=== PATIENT | male | born 1955 | race Caucasian/White ===

== ENCOUNTER 2020-08-30 09:04 | Outpatient (CLI) | payer OTHER ==
[2020-08-30 21:52] LABS: SARS-CoV-2 PCR by NAA Not Detected (NotDetected)
== END 2020-08-30 09:05 | disposition home or self-care (01) ==
LOC: LABBT 09:04
PROVIDERS: ATTEND Surgery
DX: Z01.818 Encounter for other preprocedural examination (principal); K42.9 Umbilical hernia without obstruction or gangrene; Z20.822 Contact with and (suspected) exposure to COVID-19
CPT/HCPCS: 87635; 93005; 93010; U0003; U0005

== ENCOUNTER 2020-09-04 05:42 | Day surgery (SDC) | payer OTHER ==
[2020-09-03 10:31] VITALS: BMI 33.6
[2020-09-04] MEDS ORDERED: Fentanyl 100 MCG/2 ML VIAL ONE (05:58)
[2020-09-04] MEDS ORDERED: HYDROmorphone 0.5 MG/0.5 ML SYRINGE ONE (05:58)
[2020-09-04] MEDS ORDERED: Midazolam HCl 2 mg/2 ml Vial ONE (05:58)
[2020-09-04] MEDS ORDERED: Lidocaine 2% Jelly 5 ML TUBE ONE (05:59)
[2020-09-04] MEDS ORDERED: Lidocaine 1% w/Epinephrine 1:100K 20 ML VIAL ONE (06:40)
[2020-09-04] MEDS ORDERED: Bupivacaine PF 0.5% 30 ML VIAL ONE (06:40)
[2020-09-04] MEDS ORDERED: Levofloxacin 500 mg/D5W 100 ml Premix Bag ONE (07:23)
[2020-09-04] MEDS ORDERED: PROPOFOL 200 MG/20 ML VIAL ONE (09:21)
[2020-09-04] MEDS ORDERED: Ondansetron PF 4 MG/2 ML Vial ONE (09:21)
[2020-09-04] MEDS ORDERED: Dexamethasone 20 MG/5 ML VIAL ONE (09:21)
[2020-09-04] MEDS ORDERED: Glycopyrrolate 0.2 MG/ML 5 ML SYRINGE ONE (09:21)
[2020-09-04] MEDS ORDERED: Rocuronium Bromide 10 MG/ML (10ML VIAL) ONE (09:21)
[2020-09-04] MEDS ORDERED: ePHEDrine 50 MG/ML VIAL ONE (09:21)
[2020-09-04] MEDS ORDERED: Lidocaine 1% PF 5 ML VIAL ONE (09:21)
[2020-09-04] MEDS ORDERED: HYDROcodone/Acetaminophen 5/325 mg Tablet ONE (10:18)
== END 2020-09-04 10:40 | disposition home or self-care (01) ==
LOC: SDC 05:42
PROVIDERS: ATTEND Surgery
PROC: 0WUF0JZ Supplement Abdominal Wall with Synthetic Substitute, Open Approach (ICD-10-PCS; principal; 2020-09-04)
DX: K42.9 Umbilical hernia without obstruction or gangrene (principal); M19.90 Unspecified osteoarthritis, unspecified site; M10.9 Gout, unspecified; I10 Essential (primary) hypertension; Z79.82 Long term (current) use of aspirin; Z88.0 Allergy status to penicillin
CPT/HCPCS: C1781; J0690; J1100; J1170; J1956; J2250; J2405; J2704; J3010; J3490; S0020

== ENCOUNTER 2022-02-12 15:13 | Outpatient (CLI) | payer BC | END 2022-02-12 15:14 | disposition home or self-care (01) | LOC: BICRAD 15:13 | PROVIDERS: ATTEND Anesthesiology Pain Medicine | DX: M16.12 Unilateral primary osteoarthritis, left hip (principal); M47.816 Spondylosis without myelopathy or radiculopathy, lumbar region; S73.002A Unspecified subluxation of left hip, initial encounter | CPT/HCPCS: 72110 ==

== ENCOUNTER 2022-03-03 15:39 | Outpatient (CLI) | payer BC ==
[2022-03-03 16:45] LABS: INR-International Normal Ratio 0.9; Prothrombin Time 10.3 sec (9.5-12.1)
[2022-03-03 16:48] LABS: #Basophils 0.1 10x3/uL (0.0-0.2); #Eosinphils 0.4 10x3/uL (0.0-0.5); #Neutrophils 5.8 10x3/uL (1.5-8.4); %Basophils 0.6 % (0.0-2.0); %Eosinophils 4.3 % (0.0-6.0); %Lymphocytes 12.9 % (18.0-47.0); %Monocytes 11.8 % (0.0-10.0); %Neutrophils 69.9 % (40.0-75.0); Anion Gap 16 mmol/L (10-20); BUN (Urea Nitrogen) 24 mg/dL (8.4-25.7); Calc. Creatinine Clearance 0 mL/min (70-130); Calcium 9.3 mg/dL (7.8-10.44); Carbon Dioxide 26 mmol/L (23-31); Chloride 99 mmol/L (98-107); Estimated GFR 43; Glucose 118 mg/dL (80-115); Hemoglobin 13.6 g/dL (13.5-17.5); Mean Corpuscular HGB CONC 34.3 g/dL (32.0-36.0); Mean Corpuscular Hemoglobin 30.1 pg (27.0-33.0); Mean Corpuscular Volume 87.8 fl (81.2-95.1); Mean Platelet Volume 9.7 fl (7.4-10.4); Platelet Count 340 10x3/uL (150-450); Potassium 4.1 mmol/L (3.5-5.1); RBC Distribution Width 12.7 % (11.5-14.5); Red Blood Cell (RBC) Count 4.52 10x6/uL (4.32-5.72); Sodium 137 mmol/L (136-145); White Blood Cell (WBC) Count 8.2 10x3/uL (3.5-10.5)
== END 2022-03-03 15:40 | disposition home or self-care (01) ==
LOC: LABBT 15:39
PROVIDERS: ATTEND Orthopaedic Surgery
DX: Z01.818 Encounter for other preprocedural examination (principal); M16.12 Unilateral primary osteoarthritis, left hip; Z20.822 Contact with and (suspected) exposure to COVID-19
CPT/HCPCS: 80048; 85025; 85610; 87081; 87811; 93005; 93010

== ENCOUNTER 2022-03-05 05:54 | Observation (INO) | payer BC, MEDICARE ==
[2022-03-03 12:20] VITALS: BMI 31.4
[2022-03-05] MEDS ORDERED: Tranexamic Acid 1,000 MG/10 ML VIAL ONE (06:17)
[2022-03-05] MEDS ORDERED: Sodium Chloride 0.9% 100 ML ONE ×2 (06:17→07:10)
[2022-03-05] MEDS ORDERED: Vancomycin (BATCH) 1.5 GRAM/300 ML BAG ONE (06:17)
[2022-03-05] MEDS ORDERED: Midazolam HCl 2 mg/2 ml Vial ONE ×2 (06:24→06:54)
[2022-03-05] MEDS ORDERED: fentaNYL Citrate/PF 100 MCG/2 ML SYRINGE ONE (06:25)
[2022-03-05] MEDS ORDERED: Propofol 1,000 MG/100 ML VIAL IV ONE (06:48)
[2022-03-05] MEDS ORDERED: Fentanyl 100 MCG/2 ML VIAL ONE (06:54)
[2022-03-05] MEDS ORDERED: Bupivacaine PF 0.5% 30 ML VIAL ONE (07:04)
[2022-03-05] MEDS ORDERED: CEFAZOLIN 2 GM VIAL ONE (07:10)
[2022-03-05] MEDS ORDERED: Phenylephrine 10 MG/ML VIAL ONE (07:16)
[2022-03-05] MEDS ORDERED: ePHEDrine 50 MG/ML VIAL ONE (07:16)
[2022-03-05] MEDS ORDERED: Bupivacaine HCl 0.5%/Epinephrine 1:200,000/PF 30 ml Vial ONE (07:16)
[2022-03-05] MEDS ORDERED: Ketorolac Tromethamine 30 MG/ML VIAL ONE (07:16)
[2022-03-05] MEDS ORDERED: PROPOFOL 200 MG/20 ML VIAL ONE (07:16)
[2022-03-05] MEDS ORDERED: Glycopyrrolate 0.2 MG/ML 5 ML SYRINGE ONE (07:16)
[2022-03-05] MEDS ORDERED: Promethazine HCl 25 MG/ML VIAL IM PRN (07:20)
[2022-03-05] MEDS ORDERED: HYDROcodone/Acetaminophen 10/325 mg Tablet PO PRN (07:20)
[2022-03-05] MEDS ORDERED: Ondansetron PF 4 MG/2 ML Vial IVP PRN (07:20)
[2022-03-05] MEDS ORDERED: Fentanyl 100 MCG/2 ML VIAL SLOW IVP PRN ×2 (07:20)
[2022-03-05] MEDS ORDERED: Acetaminophen 325 MG TAB PO PRN (07:20)
[2022-03-05] MEDS ORDERED: Zolpidem Tartrate 5 MG TAB PO PRN (07:20)
[2022-03-05] MEDS ORDERED: diphenhydrAMINE 25 MG CAP PO PRN (07:20)
[2022-03-05] MEDS ORDERED: Aspirin 81 mg Enteric Coated Tablet PO SCH (09:00)
[2022-03-05] MEDS ORDERED: FOLIC PO SCH (09:00)
[2022-03-05] MEDS ORDERED: LYCOP PO SCH (09:00)
[2022-03-05] MEDS ORDERED: IRON PO SCH (09:00)
[2022-03-05] MEDS ORDERED: [UNRECOGNIZED DRUG - OTHER] PO SCH (09:00)
[2022-03-05] MEDS ORDERED: MULTIVIT MINS PO SCH (09:00)
[2022-03-05] MEDS ORDERED: Non-Formulary Medication 1 EACH PO PRN (09:35)
[2022-03-05] MEDS ORDERED: Ondansetron HCl/PF 4 MG/2 ML Vial IVP PRN (09:45)
[2022-03-05] MEDS ORDERED: Promethazine HCl 25 MG/ML VIAL IM/IV PRN (09:45)
[2022-03-05] MEDS: HYDROcodone/Acetaminophen 10/325 mg Tablet PO PRN ×2 (11:35→16:17)
[2022-03-05] MEDS: Sodium Chloride 0.9% 1,000 ML IV SCH ×2 (13:51→18:46)
[2022-03-05] MEDS: Lisinopril/Hydrochlorothiazide 10 mg/12.5 mg Tablet PO SCH (13:51)
[2022-03-05] MEDS: Docusate 100 MG CAP PO SCH (13:51)
[2022-03-05] MEDS: Aspirin 81 mg Enteric Coated Tablet PO SCH ×2 (13:51→20:10)
[2022-03-05] MEDS: Ketorolac Tromethamine 30 MG/ML VIAL IVP SCH ×2 (15:12→22:32)
[2022-03-05] MEDS: CEFAZOLIN 2 GM in Sodium Chloride 0.9% 100 ML IVPB SCH ×2 (15:12→22:33)
[2022-03-05] MEDS ORDERED: Gabapentin 300 MG CAP PO SCH (21:00)
[2022-03-06] MEDS: HYDROcodone/Acetaminophen 10/325 mg Tablet PO PRN ×2 (03:49→09:09)
[2022-03-06] MEDS: Sodium Chloride 0.9% 1,000 ML IV SCH (04:16)
[2022-03-06 05:35] LABS: Hemoglobin 9.9 g/dL (14.0-18.0); Mean Corpuscular HGB CONC 33.4 g/dL (32.0-36.0); Mean Corpuscular Hemoglobin 30.6 pg (27.0-31.0); Mean Corpuscular Volume 91.7 fL (78.0-98.0); Mean Platelet Volume 6.8 fL (7.4-10.4); Platelet Count 202 thou/uL (130-400); RBC Distribution Width 11.9 % (11.5-14.5); Red Blood Cell (RBC) Count 3.22 mill/uL (4.70-6.10); White Blood Cell (WBC) Count 7.7 thou/uL (4.8-10.8)
[2022-03-06] MEDS: Ketorolac Tromethamine 30 MG/ML VIAL IVP SCH (06:07)
[2022-03-06] MEDS ORDERED: Ferrous Gluconate 324 MG TAB PO SCH (08:00)
[2022-03-06 08:34] VITALS: BP 100/65; TEMP 97.7
[2022-03-06] MEDS ORDERED: Senokot S 8.6-50 MG TAB PO SCH (09:00)
[2022-03-06] MEDS ORDERED: Multivitamin W/ Minerals 1 TAB PO SCH (09:00)
[2022-03-06] MEDS: Docusate 100 MG CAP PO SCH (09:08)
[2022-03-06] MEDS: Aspirin 81 mg Enteric Coated Tablet PO SCH (09:08)
[2022-03-06] MEDS: Lisinopril/Hydrochlorothiazide 10 mg/12.5 mg Tablet PO SCH (09:17)
== END 2022-03-06 10:45 | disposition home or self-care (01) ==
LOC: SDC 05:54 → SURG A 07:23
PROVIDERS: ADMIT Orthopaedic Surgery; ATTEND Orthopaedic Surgery
PROC: 0SRB04A Replacement of Left Hip Joint with Ceramic on Polyethylene Synthetic Substitute, Uncemented, Open Approach (ICD-10-PCS; principal; 2022-03-05)
PROC: 3E0T3BZ Introduction of Anesthetic Agent into Peripheral Nerves and Plexi, Percutaneous Approach (ICD-10-PCS; 2022-03-05)
DX: M16.12 Unilateral primary osteoarthritis, left hip (principal); M84.452A Pathological fracture, left femur, initial encounter for fracture; I10 Essential (primary) hypertension; M10.9 Gout, unspecified; Z79.82 Long term (current) use of aspirin; Z79.899 Other long term (current) drug therapy; Z88.0 Allergy status to penicillin
CPT/HCPCS: 36415; 85027; C1713; C1776; J0690; J1885; J2250; J2370; J2704; J3010; J3370; J3490; S0020